=== PATIENT | female | born 1945 | race Caucasian/White ===

== ENCOUNTER 2024-01-07 13:19 | Day surgery (SDC) | payer OTHER, BC ==
[2024-01-03 13:00] VITALS: BMI 31.2
[~2024-01-07 13:19] MED LIST: ACETAMINOPHEN INJECTION 100 ML IVPB ONE; BUPIVACAINE HCL/PF 0.5% (5MG/ML) 10 ML VIAL ONE; BUPIVACAINE LIPOSOME/PF (EXPAREL) 266 MG/20 ML VIAL ONE; CLINDAMYCIN 600MG PREMIX IVPB 600 MG/50 ML BAG IVPB ONE; DEXAMETHASONE SOD PHOSPHATE 4 MG/1 ML VIAL ONE; LIDOCAINE HCL/PF 2% SDV 5ML VIAL ONE; MIDAZOLAM HCL 2 MG/2 ML SINGLE DOSE VIAL ONE; ONDANSETRON 4 MG/2 ML VIAL IVPUSH PRN; ONDANSETRON 4 MG/2 ML VIAL ONE; PROPOFOL 20 ML ONE; TRANEXAMIC ACID 1000 MG/10 ML VIAL ONE; VANCOMYCIN 1,000 MG VIAL (RESTRICTED TO ID ONLY) ONE; ePHEDrine SULFATE 50 MG/1 ML AMPULE ONE
[2024-01-07] MEDS ORDERED: busPIRone HCL 5 MG TABLET PO PRN (14:27)
[2024-01-07] MEDS: ACETAMINOPHEN 325 MG TABLET (FP) PO PRN (15:20)
[2024-01-07] MEDS: oxyCODONE HCL 5 MG TABLET PO PRN (15:21)
[2024-01-07] MEDS: CLINDAMYCIN 900 MG PREMIX IVPB 900 MG/50 ML BAG IVPB SCH (18:03)
[2024-01-07] MEDS ORDERED: CLINDAMYCIN 900 MG PREMIX IVPB 900 MG/50 ML BAG IVPB SCH (19:00)
[2024-01-07] MEDS: VANCOMYCIN/WATER FOR INJ (PEG) 1 GM/200 ML BAG IVPB ONE (22:13)
[2024-01-07] MEDS ORDERED: VANCOMYCIN 1,000 MG in DEXTROSE 5%-WATER - 250 ML IVPB ONE (22:30)
[2024-01-08] MEDS: TRANEXAMIC ACID 1000 MG/10 ML VIAL IVPUSH ONE (06:27)
[2024-01-08] MEDS: LACTATED RINGERS SOLUTION 1,000 ML IV SCH (06:27)
[2024-01-08] MEDS ORDERED: PATIENT'S OWN MEDICATION (NON-FORMULARY) (Enalapril Maleate [Enalapril Maleate] 20 MG Tabl PO SCH (10:00)
[2024-01-08] MEDS ORDERED: amLODIPine BESYLATE 5 MG TABLET (FP) PO SCH (10:00)
[2024-01-08] MEDS: ENALAPRIL MALEATE 10 MG TABLET PO SCH (10:15)
[2024-01-08] MEDS: amLODIPine BESYLATE 5 MG TABLET (FP) PO SCH (10:15)
[2024-01-08 10:45] LABS: CALCIUM 9.7 mg/dl (8.5-10.1); CREATININE 0.5 mg/dl (0.6-1.3); POTASSIUM 4.1 mmol/L (3.5-5.1)
[2024-01-08] MEDS: ACETAMINOPHEN 1000 MG/100 ML BAG IVPB PRN (11:55)
[2024-01-08] MEDS: KETOROLAC TROMETHAMINE 30 MG/1 ML VIAL IVPUSH ONE (12:24)
[2024-01-08 12:28] LABS: BASO % 0.2 % (0-2.0); EOS % 0.1 % (0-4.5); HEMATOCRIT 34.4 % (32.4-45.2); HEMOGLOBIN 11.5 GM/dL (10.7-15.3); LYMPH % 14.5 % (8-40); MCHC 33.4 g/dl (32.0-36.0); MEAN CELL VOLUME 89.7 fl (80-96); MEAN PLT VOLUME 8.8 fl (7.5-11.1); MONO % 10.4 % (3.8-10.2); NEUT % 74.8 % (42.8-82.8); PLATELET COUNT 271 10^3/uL (134-434); RBC 3.84 M/mm3 (3.60-5.2); RDW 13.4 % (11.6-15.6); WHITE BLOOD COUNT 8.8 K/mm3 (4.0-10.0)
[2024-01-08 14:01] VITALS: PULSE 94
[2024-01-08] MEDS ORDERED: HALOPERIDOL LACTATE 5 MG/ML ONE (18:10)
[2024-01-08] MEDS ORDERED: LORazepam 2 MG/ML SDV VIAL IM ONE (19:45)
[2024-01-08] MEDS: HALOPERIDOL LACTATE 5 MG/ML IM ONE (19:52)
[2024-01-09] MEDS: amLODIPine BESYLATE 5 MG TABLET (FP) PO SCH (09:55)
[2024-01-09] MEDS: ENALAPRIL MALEATE 10 MG TABLET PO SCH (09:55)
[2024-01-09 11:25] VITALS: BP 126/78; RESP 18; TEMP 98.1
== END 2024-01-09 12:09 | disposition home or self-care (01) ==
LOC: FASUSAT 13:19 → FM/S 13:20 → FASUSAT 01-09 12:09
PROC: 0LS40ZZ Reposition Left Upper Arm Tendon, Open Approach (ICD-10-PCS; 2024-01-07)
PROC: 0RRK0JZ Replacement of Left Shoulder Joint with Synthetic Substitute, Open Approach (ICD-10-PCS; principal; 2024-01-07 10:55)
DX: M19.012 Primary osteoarthritis, left shoulder (principal); M75.102 Unspecified rotator cuff tear or rupture of left shoulder, not specified as traumatic; M75.22 Bicipital tendinitis, left shoulder
CPT/HCPCS: 23430; 23472; C1776; 36415; 70450-TC; 73030-TC-LT-FY; 80048; 85025; 88305-TC; 88311-TC; 94760; 97010-GP; 97116-GP; 97162-GP; C1713; C1757; J0131